=== PATIENT | male | born 1955 | race African-American/Black ===

== ENCOUNTER 2017-03-23 07:08 | Day surgery (SDC) | payer OTHER ==
[2017-03-21 13:53] VITALS: BMI 27.8
--- NOTE | 2017-03-23 10:48 | OP ---
Operative Note - Note: Operative Date: 03/23/17 Pre-Operative Diagnosis: Right TKA arthrofibrosis Operation: Right TKA RHONA Findings: Pre-RHONA R TKA PROM: 10-80 deg Post-RHONA R TKA PROM: 5-95 deg Post-Operative Diagnosis: Same as Pre-op Surgeon: Nathan Red Anesthesiologist/MEDIA RELATIONS COORDINATOR: Aixa Pichardo Anesthesia: General Operative Report Dictated: Yes
[2017-03-23] MEDS ORDERED: ONDANSETRON 4 MG/2 ML VIAL IVPUSH PRN (10:49)
[2017-03-23] MEDS ORDERED: LACTATED RINGERS SOLUTION 1,000 ML IV SCH (11:00)
[2017-03-23] MEDS ORDERED: ONDANSETRON 4 MG/2 ML VIAL IVPUSH ONE (11:00)
[2017-03-23] MEDS: oxyCODONE HCL 5 MG TABLET PO PRN ×2 (11:40→12:30)
[2017-03-23 11:51] VITALS: TEMP 98.2
[2017-03-23] MEDS ORDERED: oxyCODONE HCL 5 MG TABLET ONE ×2 (11:54→12:35)
[2017-03-23 13:17] VITALS: BP 136/72; PULSE 66
--- NOTE | 2017-03-25 22:48 | OP ---
DATE OF OPERATION: DATE OF DICTATION: 03/24/2017 SURGEON: Nathan Red M.D. [employer] FOLDING MACHINE OPERATOR: None. PREOPERATIVE DIAGNOSIS: Right total knee replacement arthrofibrosis. POSTOPERATIVE DIAGNOSIS: Right total knee replacement arthrofibrosis. SURGICAL PROCEDURE: Manipulation, right total knee replacement under anesthesia. ANESTHESIA: Sedation. POSITION: Supine. INCISION: None. ESTIMATED BLOOD LOSS: None. INTRAVENOUS FLUID: See anesthesia records. SPECIMENS: None. DRAINS: None. COMPLICATIONS: None. URINE OUTPUT: None. BACTERIOLOGY: None. TRANSFUSIONS: None. CLOSURE: None. INDICATION: The patient is a 62-year-old gentleman who underwent a right total knee replacement on November 06, 2016. He developed arthrofibrosis of his right knee with marked limited range of motion and was indicated for a manipulation of his right total knee replacement under anesthesia in order to facilitate early motion & immobilization, and to prevent complications associated with sedentary lifestyle. Patient was identified in the holding area by his arm band. A long discussion is held with the patient regarding the risks, benefits, and alternatives of the above named procedure. Risks include but are not limited to: pain, bleeding, infection, damage to the surrounding structures (including nerves, blood vessels, skin, ligaments, tendons and bones), wound complications, failure of hardware/implant/reduction, need for further surgery, blood clots, myocardial infarction, pulmonary embolism, anesthesia complications, compartment syndrome, limb loss, loss of function, femur or tibia fracture, and . Benefits as mentioned above. Alternatives include no manipulation. All questions are answered. Patient understood and agreed to the procedure. Informed consent was obtained, witnessed, and verified. The patient 's correct limb - that is, the right lower extremity - was marked, and the patient was then assessed by the anesthesia and nursing teams. PROCEDURE: Consents and the operative site were verified by the patient and nursing and anesthesia staff. Anesthesia was then administered without complications. No antibiotics were administered. In the preoperative holding area, an assessment of the right knee revealed a passive range of motion of 10 to 80 degrees of knee flexion. The knee was manipulated both in extension and in flexion, but no gratifying release of the fibrous scar tissue was achieved. Final range of motion at the end of the procedure was noted to be 5 to 95 degrees of flexion. This obviously was an improvement over his pre-procedure range of motion but, again, was not entirely gratifying. At this point, I decided not to further stretch the knee in flexion out of risk for inducing an iatrogenic tibial shaft fracture due to the force required to further flex his knee. This brought the procedure to a conclusion. There are no sponge or needle counts, as no surgery took place. I , the attending surgeon, performed the entire procedure. The patient was then deemed to be in stable condition having tolerated the procedure well by the anesthesia team, and this marked the end of the case. MD ARACELI Carbajal/[id number] MTDD
== END 2017-03-23 13:18 | disposition home or self-care (01) ==
LOC: FASU 07:08
PROVIDERS: ATTEND Orthopaedic Surgery Adult Reconstructive Orthopaedic Surgery
PROC: 0SWCXJZ Revision of Synthetic Substitute in Right Knee Joint, External Approach (ICD-10-PCS; principal; 2017-03-23 10:34)
DX: M24.661 Ankylosis, right knee (principal); Z96.651 Presence of right artificial knee joint
CPT/HCPCS: 94760

== ENCOUNTER 2017-04-27 06:47 | Day surgery (SDC) | payer OTHER ==
[2017-04-26 11:41] VITALS: BMI 27.8
[2017-04-27 07:32] VITALS: TEMP 97.8
[2017-04-27] MEDS ORDERED: PROPOFOL 20 ML ONE ×2 (08:47)
[2017-04-27] MEDS ORDERED: SUCCINYLCHOLINE CHLORIDE 200 MG/10 ML VIAL ONE (08:47)
--- NOTE | 2017-04-27 09:09 | OP ---
Operative Note - Note: Operative Date: 04/27/17 Pre-Operative Diagnosis: Right TKA arthrofibrosis Operation: Right TKA RHONA Findings: Pre-RHONA PROM R Knee: 10-90 deg KF. Post-RHONA PROM R Knee: 5-120 deg KF. Post-Operative Diagnosis: Same as Pre-op Surgeon: Nathan Red Anesthesiologist/COMMERCIAL ATTORNEY: Brigido Pal Anesthesia: MAC Estimated Blood Loss (mls): 0 Operative Report Dictated: Yes
[2017-04-27] MEDS ORDERED: ONDANSETRON 4 MG/2 ML VIAL IVPUSH PRN (09:16)
[2017-04-27] MEDS ORDERED: oxyCODONE HCL 5 MG TABLET PO PRN ×2 (09:16)
[2017-04-27] MEDS ORDERED: PROMETHAZINE HCL 25 MG/1 ML VIAL IVPUSH PRN (09:16)
[2017-04-27] MEDS ORDERED: ONDANSETRON 4 MG/2 ML VIAL ONE (09:22)
--- NOTE | 2017-04-27 09:50 | OP ---
DATE OF OPERATION: 04/27/2017 SURGEON: Nathan Red MD CLINICAL PHARMACIST: None. PREOPERATIVE DIAGNOSIS: Right total knee replacement arthrofibrosis. POSTOPERATIVE DIAGNOSIS: Right total knee replacement arthrofibrosis. SURGICAL PROCEDURE: Right total knee replacement manipulation under anesthesia. ANESTHESIA: Sedation. POSITION: Supine. INCISION: None. ESTIMATED BLOOD LOSS: None. INTRAVENOUS FLUID: See Anesthesia record. SPECIMENS: None. DRAINS: None. COMPLICATIONS: None. URINE OUTPUT: None. BACTERIOLOGY: None. TRANSFUSIONS: None. CLOSURE: None. INDICATIONS: The patient is a [id number] gentleman who presents with post right total knee replacement arthrofibrosis of the knee. The index procedure was performed in October 2016. He underwent a manipulation under anesthesia of the right knee within the last few months with very little success. For these reasons, he was indicated for a repeat manipulation under anesthesia. He will continue to be indicated for repeat manipulations under anesthesia until we achieve successful and gratifying release of the fibrotic scar tissue that encapsulates the knee joint. This is to facilitate improved motion and mobilization and to prevent the complications associated with a sedentary lifestyle. The patient was identified in the holding area by his arm band. A long discussion was held with the patient regarding the risks, benefits and alternatives of the above-named procedure. Risks include, but are not limited to, pain, bleeding, infection, damage to surrounding structures (including nerves, blood vessels, skin, ligaments, tendons and bone), wound complications, failure of hardware/implants/reduction, need for further surgery, blood clots, myocardial infarction, pulmonary embolism, anesthesia complications, compartment syndrome, limb loss, limp, loss of function and . Benefits as mentioned above. Alternatives include no surgery. All questions were answered. The patient understood and agreed to the procedure. Informed consent was obtained, witnessed and verified. The patient's correct operative limb, that is the right lower extremity, was marked and the patient was taken to the operating room after being seen by the anesthesia and nursing staff. PROCEDURE: The patient was brought into the operating room on a hospital stretcher where he remained for the procedure. Consent and the operative site were again verified with the nursing and anesthesia staff. Anesthesia was then administered without complications. Timeout was done led by me, the attending surgeon. A preoperative orthopedic exam revealed passive range of motion of the right knee from 10 to 90 degrees of flexion. A manipulation under anesthesia was then performed with the final passive range of motion of the right knee being 5 to 120 degrees of knee flexion. The patient tolerated the procedure well. There were no sponge or needle counts as no incision was made and no surgery was performed. The patient was then transferred to the recovery room in stable condition, having tolerated the procedure well. MD ARACELI Carbajal/[id number]
[2017-04-27] MEDS ORDERED: oxyCODONE HCL 5 MG TABLET ONE (10:18)
[2017-04-27 11:26] VITALS: BP 139/78; PULSE 92
== END 2017-04-27 11:20 | disposition home or self-care (01) ==
LOC: FASU 06:47
PROVIDERS: ATTEND Orthopaedic Surgery Adult Reconstructive Orthopaedic Surgery
PROC: 9WB6XLZ Chiropractic Manipulation of Lower Extremities, Other Method (ICD-10-PCS; principal; 2017-04-27 08:54)
DX: M24.661 Ankylosis, right knee (principal); Z96.651 Presence of right artificial knee joint
CPT/HCPCS: 94760

== ENCOUNTER 2017-06-22 06:26 | Day surgery (SDC) | payer OTHER ==
[2017-06-21 13:57] VITALS: BMI 27.8
--- NOTE | 2017-06-22 07:53 | OP ---
Operative Note - Note: Operative Date: 06/22/17 Pre-Operative Diagnosis: Right TKA arthrofibrosis Operation: Right TKA RHONA Findings: Pre-RHONA ROM: 15-75 deg right knee flexion Post-RHONA ROM: 10-120 deg right knee flexion Post-Operative Diagnosis: Same as Pre-op Surgeon: Nathan Red Anesthesiologist/SUSTAINABILITY CONSULTANT: Piyush Garcia Anesthesia: General Estimated Blood Loss (mls): 0 Operative Report Dictated: Yes
[2017-06-22] MEDS ORDERED: ONDANSETRON 4 MG/2 ML VIAL ONE (08:05)
[2017-06-22] MEDS ORDERED: ONDANSETRON 4 MG/2 ML VIAL IVPUSH ONE (08:10)
[2017-06-22] MEDS ORDERED: ONDANSETRON 4 MG/2 ML VIAL IVPUSH PRN (08:39)
[2017-06-22] MEDS ORDERED: PROMETHAZINE HCL 25 MG/1 ML VIAL IVPUSH PRN (08:39)
[2017-06-22] MEDS ORDERED: oxyCODONE HCL 5 MG TABLET PO PRN ×2 (08:39)
[2017-06-22] MEDS ORDERED: LACTATED RINGERS SOLUTION 1,000 ML IV SCH (08:45)
[2017-06-22 08:53] VITALS: TEMP 97.5
[2017-06-22] MEDS ORDERED: oxyCODONE HCL 5 MG TABLET ONE (08:58)
[2017-06-22 10:35] VITALS: BP 131/74; PULSE 74
== END 2017-06-22 10:35 | disposition home or self-care (01) ==
LOC: FASU 06:26
PROVIDERS: ATTEND Orthopaedic Surgery Adult Reconstructive Orthopaedic Surgery
PROC: 9WB6XLZ Chiropractic Manipulation of Lower Extremities, Other Method (ICD-10-PCS; principal; 2017-06-22 07:37)
DX: M24.661 Ankylosis, right knee (principal); Z96.651 Presence of right artificial knee joint
CPT/HCPCS: 94760